=== PATIENT | male | born 1985 | race African-American/Black ===

== ENCOUNTER 2017-10-23 10:36 | Emergency (ER) | payer OTHER ==
[~2017-10-23] VITALS: Ht 188 cm; Wt 81.6 kg
[2017-10-23] MEDS ORDERED: HYDROcodone/APAP 5/325MG 1 TAB TABLET PO ONE (11:45)
--- NOTE | 2017-10-23 11:54 | RAD ---
Left elbow, 3 views, 10/23/2017: History: Fall, injury There is an oblique fracture of the proximal radius involving the articular surface of the radial head. There is only slight lateral displacement of the fracture fragment. No other fracture or dislocation is identified. A satisfactory lateral view of the elbow was not obtained due to difficulties in patient positioning related to elbow pain. There is a tendinous calcification at the triceps insertion site on the olecranon process. Left forearm, 2 views, 10/23/2017: No additional fracture or bony abnormality is detected. IMPRESSION: Acute radial head fracture.
[2017-10-23 13:19] VITALS: BP 110/74
[2017-10-23] MEDS ORDERED: HYDR-971 PO (13:28)
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
== END 2017-10-23 13:43 | disposition home or self-care (01) ==
LOC: EEVIPCON 10:36 → ER 10:36
DX: S52.125A Nondisplaced fracture of head of left radius, initial encounter for closed fracture (principal); W18.39XA Other fall on same level, initial encounter; Y93.89 Activity, other specified; Y99.8 Other external cause status; Y92.89 Other specified places as the place of occurrence of the external cause
CPT/HCPCS: 29105; 29240; 73080; 73090; 99284-25; 99285-25

== ENCOUNTER 2020-12-02 18:58 | Emergency (ER) | payer OTHER ==
[~2020-12-02] VITALS: Ht 188 cm; Wt 81.2 kg
[~2020-12-02 18:58] MED LIST: HYDR-3164 PO
[2020-12-02] MEDS ORDERED: ONDANSETRON PF 4 MG/2 ML VIAL. IVP ONE (19:45)
[2020-12-02] MEDS ORDERED: fentaNYL PF VIAL 100 MCG/2 ML VIAL IVP ONE (19:45)
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
[2020-12-02 20:01] LABS: BASO % 0 % (0-3); EOS % 0 % (0-3); HEMATOCRIT 38.9 % (39.0-53.0); HEMOGLOBIN 12.9 g/dL (13.0-17.5); LYMPH # 0.6 x10^3/uL (1.0-4.8); LYMPH % 10 % (24-48); MEAN CORPUSCULAR HEMOGLOBIN 30 pg (25-35); MEAN CORPUSCULAR HGB CONC 33 g/dL (31-37); MEAN CORPUSCULAR VOLUME 91 fL (79-100); MONO # 0.3 x10^3/uL (0.0-1.1); MONO % 5 % (0-9); NEUT # 5.2 x10^3/uL (1.8-7.7); NEUT % 85 % (31-73); PLATELET COUNT 200 x10^3/uL (140-400); RED BLOOD COUNT 4.27 x10^6/uL (4.30-5.70); RED CELL DISTRIBUTION WIDTH 13.4 % (11.5-14.5); WHITE BLOOD COUNT 6.1 x10^3/uL (4.0-11.0)
[2020-12-02 20:04] LABS: BILIRUBIN,URINE NEGATIVE (NEG); CLARITY,URINE CLEAR; COLOR,URINE YELLOW; NITRITE,URINE NEGATIVE (NEG); PH,URINE 6.5 (<5.0-8.0); PROTEIN,URINE 30 mg/dL (NEG-TRACE); UROBILINOGEN,URINE 0.2 mg/dL (0.2 mg/dL)
[2020-12-02 20:10] LABS: CALCIUM 8.8 mg/dL (8.5-10.1); CREATININE 0.8 mg/dL (0.7-1.3); GFR 131.6; POTASSIUM 3.3 mmol/L (3.5-5.1)
[2020-12-02 20:15] LABS: BACTERIA,URINE FEW /HPF (0-FEW)
[2020-12-02 20:16] LABS: ALBUMIN 3.9 g/dL (3.4-5.0); ALBUMIN/GLOBULIN RATIO 1.2 (1.0-1.7); TOTAL BILIRUBIN 0.6 mg/dL (0.2-1.0); TOTAL PROTEIN 7.1 g/dL (6.4-8.2)
[2020-12-02] MEDS ORDERED: IOHEXOL 300 MG/ML 100ML VIAL. IV ONE (20:30)
[2020-12-02] MEDS ORDERED: CONTRAST GIVEN. MC PRN (20:30)
[2020-12-02 20:33] LABS: % LYMPHS 10 % (24-48); % MONOS 3 % (0-10); % SEGS 87 % (35-66); PLT ESTIMATE ADEQUATE (ADEQUATE)
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
[2020-12-02] MEDS ORDERED: IBUP-1060 PO (21:29)
[2020-12-02] MEDS ORDERED: ACET1TAB33 PO (21:29)
[2020-12-02 21:50] VITALS: BP 126/84
[2020-12-02] MEDS ORDERED: KETOROLAC 15 MG/ML VIAL. IVP ONE (22:00)
== END 2020-12-02 21:50 | disposition home or self-care (01) ==
LOC: ER 18:58 → EEVIPCON 18:58 → ER 21:50
DX: S05.11XA Contusion of eyeball and orbital tissues, right eye, initial encounter (principal); S20.212A Contusion of left front wall of thorax, initial encounter; M54.2 Cervicalgia; Y04.0XXA Assault by unarmed brawl or fight, initial encounter; Y93.89 Activity, other specified; Y92.89 Other specified places as the place of occurrence of the external cause; Y99.8 Other external cause status
CPT/HCPCS: 36415; 70450; 71260; 72125; 74177; 80053; 81001; 85007; 85025; 87086; 96374; 96375; 99285; J1885; J2405; J3010; Q9967